=== PATIENT | female | born 1955 ===

== ENCOUNTER → 2017-05-18 | Outpatient (CLI) | payer BC ==
[~2017-05-18] MED LIST: ASPI81CH PO; Flovent 110 MCG12 GM INH; LEVSOD75 PO; LOSA50 PO; Omeprazole20 M1 PO
== END ==
LOC: LAB SHORT 16:48 → LAB 16:48
DX: D48.5 Neoplasm of uncertain behavior of skin (principal)
CPT/HCPCS: 88305